=== PATIENT | female | born 1965 | race Caucasian/White ===

== ENCOUNTER 2023-09-27 17:28 | Emergency (ER) | payer OTHER ==
[~2023-09-27] VITALS: Ht 167.6 cm; Wt 54.4 kg
[2023-09-27 17:57] VITALS: BP 151/80
[2023-09-27] MEDS ORDERED: CEPH500 PO (19:40)
== END 2023-09-27 19:43 | disposition home or self-care (01) ==
LOC: ER 17:28
DX: M25.572 Pain in left ankle and joints of left foot (principal); F17.210 Nicotine dependence, cigarettes, uncomplicated; W01.198A Fall on same level from slipping, tripping and stumbling with subsequent striking against other object, initial encounter; Y92.838 Other recreation area as the place of occurrence of the external cause
CPT/HCPCS: 73630; 96372; 99283-25; A9270; J1885